=== PATIENT | male | born 1960 | race Caucasian/White ===

== ENCOUNTER 2020-05-11 09:52 | Outpatient (CLI) | payer OTHER, BC, SELFPAY ==
[2020-05-11 10:27] LABS: Alanine Aminotransferase 54 U/L (4-50); Albumin Level 4.5 g/dL (3.5-5.1); Alkaline Phosphatase 79 U/L (38-126); Anion Gap 7 mmol/L (8-16); Aspartate Amino Transferase 35 U/L (17-59); Bilirubin,Total 0.4 mg/dL (0.2-1.3); Blood Urea Nitrogen 23 mg/dL (9-20); Calcium 9.5 mg/dL (8.4-10.2); Carbon Dioxide 25 mmol/L (22-30); Chloride 107 mmol/L (98-107); Cholesterol 208 mg/dL (0-200); Estimated Glomerular Filt Rate > 60; Glucose 107 mg/dL (75-110); HDL Direct 37 mg/dL; Potassium 4.4 mmol/L (3.4-5.0); Sodium 139 mmol/L (137-145); Triglycerides 224 mg/dL (<150)
[2020-05-11 10:38] LABS: LDL Cholesterol Direct 126 mg/dL
[2020-05-11 10:57] LABS: Prostate Specific Antigen 1.1 ng/mL (< OR = 4.0)
== END 2020-05-11 09:53 | disposition home or self-care (01) ==
LOC: ANHLAB 09:57
PROVIDERS: PCP Family Medicine; Visit Provider Family Medicine
DX: E78.5 Hyperlipidemia, unspecified (principal); I10 Essential (primary) hypertension
CPT/HCPCS: 36415; 80053; 80061; 82248; 84153; G0103

== ENCOUNTER → 2022-09-24 08:40 | Outpatient (CLI) | payer OTHER, BC, SELFPAY ==
--- NOTE | ~2022-09-24 | CT_ITS ---
Non-contrast CT scan of the Abdomen and Pelvis Clinical indication: Left groin pain, hernia Technique: 5 mm axial scans were obtained through the abdomen and pelvis without intravenous or oral contrast. Dose reduction technique was used on this scan by utilizing automated exposure control and iterative reconstruction technique. The dose-length product (DLP) was 1082.15 mGy-cm. COMPARISON: 04/24/2016 Findings: Images through the lung bases reveal stable 4 mm left basilar pulmonary nodule. 5 mm nonobstructing right renal stone present. Bilateral renal cysts present. No hydronephrosis. The liver, spleen, pancreas, gallbladder, and adrenals appear normal. There is no aortic aneurysm. There is no evidence of bowel obstruction. Normal appendix. Images through the pelvis were performed. There is no evidence of ascites or lymphadenopathy. Urinary bladder unremarkable. Prostate gland and seminal vesicles are unremarkable. No hernia identified. Th ere is apparent fluid collection along the left spermatic cord, partially included in the field-of-vi ew Impression: No hernia identified. Possible fluid collection along the left spermatic cord. Consider testicular ultrasound to further ev aluate and confirm that this is separate from the left testis. 5 mm nonobstructing right renal stone. Reviewed, dictated and finalized at location . [employer] Impression: No hernia identified. Possible fluid collection along the left spermatic cord. Consider testicular ul trasound to further evaluate and confirm that this is separate from the left te stis. 5 mm nonobstructing right renal stone.
== END ==
PROVIDERS: PCP Family Medicine; Visit Provider Surgery
DX: R10.32 Left lower quadrant pain (principal); N20.0 Calculus of kidney
CPT/HCPCS: 74176

== ENCOUNTER 2025-08-18 10:49 | Outpatient (CLI) | payer MEDICARE, SELFPAY ==
--- NOTE | ~2025-08-18 | XR_ITS ---
EXAMINATION: XR shoulder LT min 2V, 08/18/2025 10:55 NETWORK ANNOUNCER HISTORY: M67.911 - Unspecified disorder of synovium and tendon, ri... COMPARISON: No comparisons available. Findings: No acute fracture or malalignment. Moderate degenerative changes. There is irregularity of the humeral head which may be degenerative but is incompletely characterized, MRI suggested to assess. Soft tissues unremarkable. Impression: Please see above. Reviewed, dictated and finalized at location P. ORK ANNOUNCER Impression: Please see above.
--- NOTE | ~2025-08-18 | XR_ITS ---
EXAMINATION: XR shoulder RT min 2V, 08/18/2025 10:55 HISTOLOGICAL ILLUSTRATOR HISTORY: M67.911 - Unspecified disorder of synovium and tendon, ri... COMPARISON: No comparisons available. Findings: No acute fracture or malalignment. No significant degenerative changes. Soft tissues unremarkable. Impression: No acute fracture or malalignment. Reviewed, dictated and finalized at location P. [employer] Impression: No acute fracture or malalignment.
== END 2025-08-18 10:50 | disposition home or self-care (01) ==
PROVIDERS: PCP Nurse Practitioner; Visit Provider Nurse Practitioner
DX: M67.911 Unspecified disorder of synovium and tendon, right shoulder (principal); M67.912 Unspecified disorder of synovium and tendon, left shoulder; M19.012 Primary osteoarthritis, left shoulder
CPT/HCPCS: 73030